=== PATIENT | female | born 1990 ===

== ENCOUNTER 2017-01-24 19:22 | Emergency (ER) | payer BC, OTHER ==
[2017-01-24 19:56] VITALS: BP 154/93
[2017-01-24] MEDS ORDERED: Mupirocin 2% OINT* TUBE TOPICAL ONE (20:07)
--- NOTE | 2017-01-24 20:28 | UC ---
Skin Complaint HPI - HPI Summary HPI Summary: concerned the piercing on her left Pinna may be infected-area is tender and a little red no drainage. - History of Current Complaint Chief Complaint: UCSkin Time Seen by Provider: 01/24/17 20:00 Stated Complaint: INFECTED PIERCING Hx Obtained From: Patient Hx Last Menstrual Period: 01/05/17 ?: No Onset/Duration: Sudden Onset, Lasting Days - 2 Timing: Constant Onset Severity: Mild Current Severity: Mild Pain Intensity: 2 Pain Scale Used: 0-10 Numeric Location: Ear (Left) Character: Redness Aggravating Factor(s): Nothing Alleviating Factor(s): Nothing Associated Signs & Symptoms: Positive: Negative - Allergy/Home Medications Allergies/Adverse Reactions: Allergies Allergy/AdvReac Type Severity Reaction Status Date / Time Morphine Allergy Itching Verified 01/24/17 19:46 Review of Systems Constitutional: Negative Skin: Other - slight erythema left pinna piercing Eyes: Negative ENT: Negative Respiratory: Negative Cardiovascular: Negative Gastrointestinal: Negative Genitourinary: Negative Motor: Negative Neurovascular: Negative Musculoskeletal: Negative Neurological: Negative Psychological: Negative Is Patient Immunocompromised?: No All Other Systems Reviewed And Are Negative: Yes PMH/Surg Hx/FS Hx/Imm Hx Previously Healthy: No Endocrine History: Diabetes - diet controlled - Surgical History Surgical History: Yes Surgery Procedure, Year, and Place: Right Oopherectomy and Fallopian Tube Removed. Cyst removed from RIGHT breast - Family History Known Family History: Positive: None - Social History Occupation: Unemployed Lives: With Family Alcohol Use: None Substance Use Type: None Smoking Status (MU): Never Smoked Tobacco - Immunization History Most Recent Influenza Vaccination: NONE 2016 Physical Exam Triage Information Reviewed: Yes Appearance: Well-Appearing, No Pain Distress Vital Signs: Initial Vital Signs Temp 98.3 F 01/24/17 19:47 Pulse 113 01/24/17 19:47 Resp 16 01/24/17 19:47 BP 154/93 01/24/17 19:47 Pulse Ox 100 01/24/17 19:47 Vital Signs Reviewed: Yes Eye Exam: Normal Eyes: Positive: Conjunctiva Clear ENT Exam: Normal ENT: Positive: Normal ENT inspection, Hearing grossly normal. Negative: Nasal congestion, Nasal drainage, Trismus, Muffled/hoarse voice Dental Exam: Normal Neck exam: Normal Neck: Positive: Supple, Nontender Respiratory Exam: Normal Respiratory: Positive: Chest non-tender, No respiratory distress, No accessory muscle use Cardiovascular Exam: Normal Cardiovascular: Positive: RRR, No Murmur, Pulses Normal, Brisk Capillary Refill , Other: - always gets tachy due to anxiety at MD office Musculoskeletal Exam: Normal Musculoskeletal: Positive: Strength Intact, ROM Intact Neurological Exam: Normal Neurological: Positive: Alert, Muscle Tone Normal Psychological Exam: Normal Skin Exam: Normal Skin: Positive: Other - slight erythema left pinna Course/Dx - Course Course Of Treatment: Bactroban, bactrim, warm compress follow with pcp prn - Differential Diagnoses - Skin Complaint Differential Diagnoses: Abscess, Cellulitis, Impetigo, Local Allergic Reaction, Christiansen-Geremias Syndrome - Diagnoses Provider Diagnoses: inflammation left pinna Discharge - Discharge Plan Condition: Stable Disposition: HOME Prescriptions: Sulfamethox/Trimethoprim DS* [Bactrim DS 800/160 TAB*] 1 tab PO BID #14 tab Patient Education Materials: Pierced Earlobe Infection (ED), Warm Compress or Soak (ED) Referrals: Vandana Doan MD [Medical Doctor] - If Needed
== END 2017-01-24 20:28 | disposition home or self-care (01) ==
LOC: UCCORT 19:22
DX: H60.92 Unspecified otitis externa, left ear (principal); Z88.5 Allergy status to narcotic agent; E11.9 Type 2 diabetes mellitus without complications
CPT/HCPCS: 99202; G0463

== ENCOUNTER 2017-05-20 20:01 | Emergency (ER) | payer OTHER ==
[2017-05-20 20:26] VITALS: BP 189/91
--- NOTE | 2017-05-20 20:35 | ED ---
Respiratory - HPI Summary HPI Summary: 26 yr old female with complaint of pain to the left side of chest described as an ache. Onse two days ago and associated with some SOB. She has a history of ovarian cancer and is concerned about blood clot. No fever, chills, cough, runny nose. No other complaints. - History of Current Complaint Chief Complaint: UCGeneralIllness Stated Complaint: CHESTACHE FATIGUE Time Seen by Provider: 05/20/17 20:13 Pain Intensity: 4 - Allergy/Home Medications Allergies/Adverse Reactions: Allergies Allergy/AdvReac Type Severity Reaction Status Date / Time Morphine Allergy Itching Verified 05/20/17 20:14 Home Medications: Home Medications NK [No Home Medications Reported] 05/20/17 [History Confirmed 05/20/17] PMH/Surg Hx/FS Hx/Imm Hx Endocrine/Hematology History: Reports: Hx Diabetes - Type 2- diet controlled/no meds - Cancer History Cancer Type, Location and Year: Ovarian Cancer, 2012 - Surgical History Surgery Procedure, Year, and Place: Right Oopherectomy and Fallopian Tube Removed. Cyst removed from RIGHT breast Infectious Disease History: No Infectious Disease History: Denies: Traveled Outside the [place] in Last 30 Days - Family History Known Family History: Positive: None - Social History Lives: With Family Alcohol Use: Rare Substance Use Type: Reports: None Smoking Status (MU): Never Smoked Tobacco Review of Systems Positive: Chest Pain Positive: Shortness Of Breath All Other Systems Reviewed And Are Negative: Yes Physical Exam Triage Information Reviewed: Yes Vital Signs On Initial Exam: Initial Vitals Temp Pulse Resp BP Pulse Ox 98.3 F 139 20 189/91 100 05/20/17 20:14 05/20/17 20:14 05/20/17 20:14 05/20/17 20:14 05/20/17 20:14 Vital Signs Reviewed: Yes Appearance: Positive: Well-Appearing, No Pain Distress Skin: Positive: Warm, Skin Color Reflects Adequate Perfusion Head/Face: Positive: Normal Head/Face Inspection Eyes: Positive: EOMI Neck: Positive: Nontender Respiratory/Lung Sounds: Positive: Clear to Auscultation, Breath Sounds Present Cardiovascular: Positive: Tachycardia. Negative: Murmur Abdomen Description: Positive: Nontender Musculoskeletal: Positive: Normal, Strength/ROM Intact. Negative: Edema Left, Edema Right Neurological: Positive: Sensory/Motor Intact, Alert, Oriented to Person Place, Time, CN Intact II-III Psychiatric: Positive: Normal - [place] Coma Scale Best Eye Response: 4 - Spontaneous Best Motor Response: 6 - Obeys Commands Best Verbal Response: 5 - Oriented Coma Scale Total: 15 Diagnostics - Vital Signs Vital Signs Temp Pulse Resp BP Pulse Ox 05/20/17 20:14 98.3 F 139 20 189/91 100 - Laboratory Lab Statement: Any lab studies that have been ordered have been reviewed, and results considered in the medical decision making process. Disposition - Course Course Of Treatment: 26 yr old with CP, SOB, and tachy. refuses EKG. refuses transport to ER by ambulance. Signed out AMA with refusal. - Diagnoses Provider Diagnoses: Chest pain, Shortness of breath, Hypertension Discharge - Discharge Plan Condition: Good Disposition: AGAINST MEDICAL ADVICE Referrals: Xenia Mena MD [Primary Care Provider] -
== END 2017-05-20 20:27 | disposition left against medical advice (07) ==
LOC: UCCORT 20:01
DX: R07.89 Other chest pain (principal); R06.02 Shortness of breath; R53.83 Other fatigue; I10 Essential (primary) hypertension; E11.9 Type 2 diabetes mellitus without complications; Z85.43 Personal history of malignant neoplasm of ovary; Z88.5 Allergy status to narcotic agent
CPT/HCPCS: 99212; G0463